=== PATIENT | female | born 1965 | race Caucasian/White ===

== ENCOUNTER → 2024-01-12 15:05 | Outpatient (REF) | payer OTHER, SELFPAY | LOC: HWEVLT 15:05 | PROVIDERS: ATTENDING PHYSICIAN Radiology Diagnostic Radiology | DX: I83.893 Varicose veins of bilateral lower extremities with other complications (principal) | CPT/HCPCS: 93970 ==

== ENCOUNTER → 2024-01-19 16:28 | Outpatient (REF) | payer OTHER, SELFPAY | LOC: WDC 16:28 | PROVIDERS: ATTENDING PHYSICIAN Obstetrics & Gynecology; FAMILY PHYSICIAN Family Medicine | DX: Z12.31 Encounter for screening mammogram for malignant neoplasm of breast (principal) | CPT/HCPCS: 77063; 77067 ==